=== PATIENT | male | born 1990 | race Caucasian/White ===

== ENCOUNTER 2019-07-17 18:42 | Emergency (ER) | payer OTHER ==
[~2019-07-17] VITALS: Ht 180.3 cm; Wt 83.9 kg
[2019-07-17 18:51] VITALS: BP 119/69
[2019-07-17] MEDS ORDERED: SUBOXONE 8 MG-1 EAC3 SUBLING (18:57)
[2019-07-17] MEDS ORDERED: MELOXICAM15 MG PO (19:06)
[2019-07-17] MEDS ORDERED: AMOXICILLIN 50500 MG PO (19:07)
== END 2019-07-17 19:16 | disposition home or self-care (01) ==
LOC: M.ERS 18:42
DX: K02.9 Dental caries, unspecified (principal); M54.2 Cervicalgia; R59.9 Enlarged lymph nodes, unspecified